=== PATIENT | male | born 1950 | race Caucasian/White ===

== ENCOUNTER 2019-03-25 23:27 | Inpatient (IN) | payer BC, MEDICARE ==
[2019-03-25] MEDS ORDERED: NS 0.9% 1000 ML** 1,000 ML IV ONE ×2 (23:44→23:45)
[2019-03-25] MEDS ORDERED: Ketorolac INJ* 30 MG/ML 1 ML VIAL IV PUSH ONE (23:45)
[2019-03-26 00:18] LABS: ABS Lymphocytes 0.6 10^3/ul (1.0-4.8); ABS Monocytes 1.1 10^3/ul (0-0.8); ABS Neutrophils 12.8 10^3/ul (1.5-7.7); Eosinophil % 0.3 %; Hematocrit 43 % (42-52); Hemoglobin 14.5 g/dL (14.0-18.0); Lymphocyte % 4.3 %; Mean Corpuscular HGB Conc 34 g/dL (31-36); Mean Corpuscular Hemoglobin 31 pg (27-31); Mean Corpuscular Volume 91 fL (80-94); Mean Platelet Volume 7.9 fL (7.4-10.4); Nucleated Red Blood Cells % 0.1; Platelet Count 209 10^3/uL (150-450); Red Blood Count 4.67 10^6 /uL (4.18-5.48); Red Cell Distribution Width 13 % (10.5-15); White Blood Count 14.6 10^3/uL (3.5-10.8)
--- NOTE | 2019-03-26 00:26 | ED ---
GI/ HPI - HPI Summary HPI Summary: Pt is a 68 y/o male who presents to the ED c/o flank pain. 2 days ago he started to have chills, body aches, dark urine, urinary frequency, and weak stream.16:00 last night he began to have right flank pain and nausea. Pain is rated an 8/10 in severity and is made worse with coughing. He states that his right kidney is half the size of his left kidney, and every few years he gets right flank pain that is resolved with antibiotics. Pt denies any fever, dysuria , hematuria, abdominal pain, vomiting, or diarrhea. - History of Current Complaint Chief Complaint: EDFlankPain Time Seen by Provider: 03/26/19 00:10 Stated Complaint: KIDNEY HALF THE SIZE AND IN PAIN PER PT Hx Obtained From: Patient Onset/Duration: Started Days Ago - 2, Still Present Timing: Constant Current Severity: Severe Pain Intensity: 8 Location of Pain: Flank - R Associated Signs and Symptoms: Positive: Nausea, Flank Pain, Chills. Negative: Vomiting, Diarrhea, Fever, Hematuria, Dysuria, Abdominal Pain - Allergy/Home Medications Allergies/Adverse Reactions: Allergies Allergy/AdvReac Type Severity Reaction Status Date / Time No Known Allergies Allergy Verified 03/25/19 23:33 Home Medications: Home Medications NK [No Home Medications Reported] 03/26/19 [History Confirmed 03/26/19] PMH/Surg Hx/FS Hx/Imm Hx GI History: Reports: Other GI Disorders - appendicitis History: Reports: Other Problems/Disorders - R kidney smaller Psychiatric History: Reports: Hx Attention Deficit Hyperactivity Disorder Infectious Disease History: No Infectious Disease History: Denies: Traveled Outside the [place] in Last 30 Days - Family History Known Family History: Positive: Other - alcoholism - Social History Alcohol Use: Occasionally Hx Substance Use: No Substance Use Type: Reports: None Hx Tobacco Use: No Smoking Status (MU): Never Smoked Tobacco Review of Systems Positive: Chills, Other - body aches. Negative: Fever Positive: Nausea. Negative: Abdominal Pain, Vomiting, Diarrhea Positive: frequency, flank pain - right, other - dark-colored urine, weak stream. Negative: dysuria, hematuria All Other Systems Reviewed And Are Negative: Yes Physical Exam - Summary Physical Exam Summary: Appearance: well appearing, no pain distress Skin: hot, dry, reflects adequate perfusion Head/face: normal Eyes: EOMI, SHERITA ENT: mucous membranes moist Neck: supple, non-tender Respiratory: CTA, breath sounds present Cardiovascular: RRR, pulses symmetrical Abdomen: mild right tenderness, no suprapubic tenderness, mild right CVA tenderness, soft Bowel Sounds: present Musculoskeletal: normal, strength/ROM intact Neuro: normal, sensory motor intact, A&Ox3 Triage Information Reviewed: Yes Vital Signs On Initial Exam: Initial Vitals Temp Pulse Resp BP Pulse Ox 99.5 F 113 20 139/84 95 03/25/19 23:30 03/25/19 23:30 03/25/19 23:30 03/25/19 23:30 03/25/19 23:30 Vital Signs Reviewed: Yes Diagnostics - Vital Signs Vital Signs Temp Pulse Resp BP Pulse Ox 03/26/19 00:17 101.1 F 03/25/19 23:30 99.5 F 113 20 139/84 95 - Laboratory Lab Results: Lab Results 03/26/19 Range/Units 00:11 WBC 14.6 H (3.5-10.8) 10^3/uL RBC 4.67 (4.18-5.48) 10^6 /uL Hgb 14.5 (14.0-18.0) g/dL Hct 43 (42-52) % MCV 91 (80-94) fL MCH 31 (27-31) pg MCHC 34 (31-36) g/dL RDW 13 (10.5-15) % Plt Count 209 (150-450) 10^3/uL MPV 7.9 (7.4-10.4) fL Neut % (Auto) 87.4 % Lymph % (Auto) 4.3 % [place] % (Auto) 7.7 % Eos % (Auto) 0.3 % Baso % (Auto) 0.3 % Absolute Neuts (auto) 12.8 H (1.5-7.7) 10^3/ul Absolute Lymphs (auto) 0.6 L (1.0-4.8) 10^3/ul Absolute Monos (auto) 1.1 H (0-0.8) 10^3/ul Absolute Eos (auto) 0.0 (0-0.6) 10^3/ul Absolute Basos (auto) 0.0 (0-0.2) 10^3/ul Absolute Nucleated RBC 0.0 10^3/ul Nucleated RBC % 0.1 Result Diagrams: 03/26/19 00:11 03/26/19 00:11 Lab Statement: Any lab studies that have been ordered have been reviewed, and results considered in the medical decision making process. - CT CT A/P CT Interpretation Completed By: Radiologist Summary of CT Findings: 1. Findings suggest cystitis. 2. Chronic severe right UPJ obstruction. 3. Colon containing left inguinal hernia. No obstruction or strangulation. 4. Sliding hiatal hernia. ED physician reviewed radiology report. - EKG 2:54 Cardiac Rate: NL - 89 bpm EKG Rhythm: Sinus Rhythm ST Segment: Non-Specific Summary of EKG Findings: Nl axis, nl intervals GIGU Course/Dx - Course Course Of Treatment: Patient with a history of atrophic kidney on the right side due to chronic obstruction as evidence by CT scan from 2005. Today's [address] shows similar picture but also findings consistent with acute cystitis. His urine is grossly infected and he has elevated WBC, CRP and a fever. Given his pain in the area and back pain and pyelonephritis is a concern. Discussed the case with the urologist who agrees with the IV fluids, Rocephin and gentamicin that was given. Patient will be admitted through the hospitalist service and have consultation with the urologist who will place a stent should the patient not recover quickly. - Diagnoses Differential Diagnoses - Male: Other - UTI, pyelonephritis, appendicitis, perforated bowel, gallbladder disease Provider Diagnoses: Sepsis, Pyelonephritis, Hyperglycemia - Physician Notifications Discussed Care Of Patient With: Lee Cooper Time Discussed With Above Provider: 01:00 Instructed by Provider To: Other - Discussed pt, and he would like a consult with urology. At 2:[address] Reece, who would like the pt admitted and he will see him in a consult. At 2:15 Dr. Cooper accepts pt for admission. Discharge - Sign-Out/Discharge Documenting (check all that apply): Patient Departure - Admit Patient Received Moderate/Deep Sedation with Procedure: No - Discharge Plan Condition: Fair Disposition: ADMITTED TO [facility] Referrals: Kaiser Johns MD [Primary Care Provider] - - Billing Disposition and Condition Condition: FAIR Disposition: Admitted to [facility] - Attestation Statements Document Initiated by Scribe: Yes Documenting Scribe: Jolly Palomo Provider For Whom Scribe is Documenting (Include Credential): James Aviles MD Scribe Attestation: I, Jolly Palomo, scribed for James Aviles MD on 03/26/19 at 0347. Scribe Documentation Reviewed: Yes Provider Attestation: The documentation as recorded by the Jolly torres accurately reflects the service I personally performed and the decisions made by me, James Aviles MD Status of Scribe Document: Viewed
[2019-03-26 00:32] LABS: INR 1.16 (0.82-1.09)
[2019-03-26 00:36] LABS: ALT 15 U/L (7-52); AST 17 U/L (13-39); Albumin 4.3 g/dL (3.2-5.2); Albumin/Globulin Ratio 1.4 (1-3); Alkaline Phosphatase 65 U/L (34-104); Anion Gap 10 mmol/L (2-11); BUN/Creatinine Ratio 11.6 (8-20); Blood Urea Nitrogen 16 mg/dL (6-24); C Reactive Protein 204.28 mg/L (<8.01); CO2 Carbon Dioxide 24 mmol/L (22-32); Calcium 9.6 mg/dL (8.6-10.3); Chloride 98 mmol/L (101-111); EGFR African American 61.8 (>60); EGFR Non-African American 51.1 (>60); Globulin 3.1 g/dL (2-4); Glucose 231 mg/dL (70-100); Sodium 132 mmol/L (135-145); Total Protein 7.4 g/dL (6.4-8.9)
[2019-03-26] MEDS ORDERED: cefTRIAXone(*) 2 GM in NS 0.9% 100 ML* 100 ML IVPB ONE (00:36)
[2019-03-26] MEDS ORDERED: Gentamicin ADULT (*) 350 MG in NS 0.9% 100 ML* 100 ML IVPB ONE (00:55)
[2019-03-26 01:23] LABS: Urine Appearance Turbid; Urine Bacteria 1+ (Absent); Urine Bilirubin Negative (Negative); Urine Blood 2+ (Negative); Urine Color Amber; Urine Glucose 3+(>=500 mg/dL) (Negative); Urine Ketones 1+ (Negative); Urine Nitrite Positive (Negative); Urine Protein 2+(100 mg/dL) (Negative); Urine Red Blood Cell 3+(>10/hpf) (Absent); Urine Squamous Epithelial Cell Present (Absent); Urine Urobilinogen Negative (Negative); Urine White Blood Cell 3+(>20/hpf) (Absent)
[2019-03-26] MEDS ORDERED: NS 0.9% 1000 ML** 1,000 ML IV ONE (04:05)
[2019-03-26] MEDS ORDERED: Ondansetron INJ* 2 MG/ML VIAL IV PRN (04:10)
[2019-03-26] MEDS ORDERED: Heparin VIAL(*) 5000 UNITS/ML VIAL (FIVE THOUSAND) SUBCUT SCH (06:00)
--- NOTE | 2019-03-26 06:41 | HP ---
CC: Dr. Johns * HISTORY AND PHYSICAL: DATE OF ADMISSION: 03/26/19 PRIMARY CARE PROVIDER: Dr. Johns. HEALTHCARE PROXY: None. Does not want to identify a healthcare proxy at this time. CODE STATUS: Full. SOURCE OF INFORMATION: History obtained from interview with the patient. RELIABILITY: Poor. CHIEF COMPLAINT: Flank pain. HISTORY OF PRESENT ILLNESS: This is a 68-year-old man with past medical history of atrophic right kidney based on CAT scan in 2005 who over the past several days, 2 to 3 days, has had subjective fevers and chills. The afternoon of presentation he woke up, made an appointment with his PCP because he had not been feeling well; however, later in the day noticed right flank pain rated as 8 /10, hard to describe in nature, but it was nonradiating. He notes he has had pain like this in the past with "kidney infections" that occur every 4, 5, or 6 years. He notes that those kidney infections have never required a hospital stay, but cannot say how long antibiotic courses have lasted or what he has taken. He notes mild nausea, decreased p.o., weaker urine stream, but denies dysuria, urinary frequency, or hesitancy. Because of the increased pain in his right flank, he presented to the emergency room. The patient's CT abdomen and pelvis was notable for cystitis as well as chronic severe right UPJ obstruction. The case was discussed between Dr. Aviles and Dr. Reece, who recommended admission to the hospital and consultation by his service in the morning with potential stenting if deemed necessary at that time after his consultation. PAST MEDICAL HISTORY: Includes: 1. Appendectomy in 2005. 2. Atrophic right kidney secondary to chronic obstruction, first noted in 2005. 3. ADHD. 4. Recurrent UTIs. 5. Hyperlipidemia. MEDICATIONS: 1. Dextroamphetamine 5 mg 2 to 4 times per day. 2. [id number] vitamin D3. 3. Calcium. 4. Zinc. 5. Magnesium. 6. B complex vitamins. ALLERGIES: No known drug allergies. FAMILY HISTORY: Father with MS and alcoholism. Mother with CVA in her 70s. SOCIAL HISTORY: No tobacco. Alcohol is approximately 6 beers per week. 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 Now works in the [employer] part- time. REVIEW OF SYSTEMS: As per HPI; otherwise, all other systems negative. PHYSICAL EXAMINATION GENERAL: Lying 45 degrees in bed, interactive and pleasant, in no apparent distress. VITAL SIGNS: When seen by this author, 130/75, heart rate 90, respiratory rate is 16, 95% on room air, T-max 101.5 in the emergency room. HEENT: Oropharynx is clear. Moist mucous membranes. Sclerae are anicteric. LUNGS: Have rales in his right base extending up approximately one-quarter of the way to the apex. He has right costovertebral angle tenderness. HEART: Has regular rate and rhythm. No murmurs, rubs, or gallops. ABDOMEN: Soft, nontender, nondistended. EXTREMITIES: Warm and well perfused. No clubbing, cyanosis, or edema. Less than 2-second capillary refill. NEUROLOGIC: He is A and O x3. His cranial nerves II through XII are intact. He has no apparent anxiety, agitation, or depression. DIAGNOSTIC STUDIES/LAB DATA: Labs reviewed, notable for white blood cell count of 14.6, 87.4% neutrophils. BUN 16, creatinine 1.38, glucose 231, lactic acid 1.0, total bilirubin 1.3, CRP is 204, lipase less than 10. His urine is notable for protein, ketones, blood, nitrites, leukocyte esterase, white blood cells, red blood cells, squamous epithelial cells, bacteria, and glucose. Data reviewed. CT abdomen and pelvis, impression: Findings suggestive of cystitis. Chronic severe right UPJ obstruction, colon-containing left inguinal hernia; no obstruction or strangulation, and a sliding hiatal hernia. ASSESSMENT AND PLAN: This is a 68-year-old man with past medical history of chronic atrophic right kidney secondary to chronic obstruction presenting with right costovertebral angle tenderness with findings suggestive of cystitis. 1. Sepsis, unclear if severe, would be based on chronicity of kidney injury. We will presume severe sepsis on presentation, bolus another liter of normal saline at this time. Is ordered to receive ceftriaxone and gentamicin. Continue ceftriaxone q.24 hours. Repeat BMP in the morning to evaluate for kidney function. If kidney function is stable, might suggest chronic kidney disease with no end-organ dysfunction, which would not indicate severe sepsis. Dr. Reece has been consulted by the emergency room. I have placed a formal consultation in emergency into [facility]. Unclear whether this infection represents pyelonephritis with a chronic obstructive kidney versus cystitis. In either case, I think he warrants urology consultation. The patient is an inconsistent historian, requesting records from Dr. Johns. 2. Elevated glucose. I have requested to add on hemoglobin A1c to the emergency room labs. If elevated, add fingerstick glucose a.c. and h.s. I have not added any insulin sliding scale at this time pending hemoglobin A1c. 3. Rales in the right base up one-quarter to the apex. Check PA and lateral chest x-ray. 4. Kidney function, unclear acute kidney injury versus chronic kidney disease. Chronic kidney disease would be understandable given chronicity of right kidney obstruction. However, in the setting of acute infection, acute kidney injury is also possible. Repeat BMP in the morning status post multi liter bolus. 5. DVT prophylaxis. Heparin subcu. [id number]/[facility] #: [id number] MTDD
[2019-03-26] MEDS ORDERED: Amphetamine MIXED SALT TAB* 10 MG TAB PO PRN (07:00)
[2019-03-26 07:17] LABS: BUN/Creatinine Ratio 12.7 (8-20); Calcium 8.1 mg/dL (8.6-10.3); EGFR African American 68.7 (>60); EGFR Non-African American 56.7 (>60); Potassium 3.8 mmol/L (3.5-5.0)
[2019-03-26] MEDS ORDERED: Dextrose 50% Syringe 50 ML* 25 GM/50 ML SYRINGE IV PUSH PRN (09:12)
--- NOTE | 2019-03-26 09:14 | PN ---
Subjective Date of Service: 03/26/19 Interval History: Admitted this morning - urology consult pending. Received CTX 2g (at 1am) and gentamicin 350mg (at 2am), so these are still at therapeutic doses until tonight. Pt still with fevers, which is expected after only a few hours of antibiotics. He is s/p sepsis fluids, euvolemic on exam, and tolerating PO. Cr slightly improved after IVF. A1c resulted 9.3 - will start on ISS. Pt denies h/o diabetes. Denies increased thirst, polyuria. Still with R CVA pain. Denies dysuria or superpubic tenderness. Reports "maybe" chills when febrile. Otherwise feels well. Objective Active Medications: Acetaminophen (Tylenol Tab*) 650 mg PO Q4H PRN PRN Reason: FEVER/PAIN Last Admin: 03/26/19 16:46 Dose: 650 mg Amphetamine/Dextroamphetamine (Adderall Tab*) 10 mg PO 0700,1400 PRN PRN Reason: MD DISCRETION Dextrose (D50w Syringe 50 Ml*) 12.5 gm IV PUSH .FOR FS < 60 - SS PRN PRN Reason: FS < 60 Enoxaparin Sodium (Lovenox(*)) 30 mg SUBCUT BEDTIME SACHA Ceftriaxone Sodium 2 gm/ (Sodium Chloride) 100 mls @ 200 mls/hr IVPB Q24H SACHA Insulin Human Lispro (Humalog*) 0 units SUBCUT AC SACHA; Protocol Last Admin: 03/26/19 17:14 Dose: 1 units Ondansetron HCl (Zofran Inj*) 4 mg IV Q4H PRN PRN Reason: NAUSEA/VOMITING Oxygen Devices in Use Now: None Appearance: well appearing, NAD, nontoxic, alert and interactive Eyes: No Scleral Icterus Ears/Nose/Mouth/Throat: Clear Oropharnyx, Mucous Membranes Moist Neck: NL Appearance and Movements; NL JVP Respiratory: Clear to Auscultation Cardiovascular: NL Sounds; No Murmurs; No JVD, RRR Abdominal: NL Sounds; No Tenderness; No Distention, No Hepatosplenomegaly, - - R CVA punch tenderness Lymphatic: No Cervical Adenopathy Extremities: No Edema Skin: No Rash or Ulcers Neurological: Alert and Oriented x 3 Result Diagrams: 03/26/19 00:11 03/26/19 06:39 Additional Lab and Data: Lab Results 03/26/19 Range/Units 00:11 WBC 14.6 H (3.5-10.8) 10^3/uL RBC 4.67 (4.18-5.48) 10^6 /uL Hgb 14.5 (14.0-18.0) g/dL Hct 43 (42-52) % MCV 91 (80-94) fL MCH 31 (27-31) pg MCHC 34 (31-36) g/dL RDW 13 (10.5-15) % Plt Count 209 (150-450) 10^3/uL MPV 7.9 (7.4-10.4) fL Neut % (Auto) 87.4 % Lymph % (Auto) 4.3 % [place] % (Auto) 7.7 % Eos % (Auto) 0.3 % Baso % (Auto) 0.3 % Absolute Neuts (auto) 12.8 H (1.5-7.7) 10^3/ul Absolute Lymphs (auto) 0.6 L (1.0-4.8) 10^3/ul Absolute Monos (auto) 1.1 H (0-0.8) 10^3/ul Absolute Eos (auto) 0.0 (0-0.6) 10^3/ul Absolute Basos (auto) 0.0 (0-0.2) 10^3/ul Absolute Nucleated RBC 0.0 10^3/ul Nucleated RBC % 0.1 Assess/Plan/Problems-Billing Assessment: 68M with 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 - Patient Problems (1) Urinary tract infection Current Visit: Yes Comment: Pyelonephritis of R atrophic kidney. Sepsis on admission, now s/p sepsis fluids and without evidence for severe sepsis. - on CTX 2g (03/26 - ), also on gentamycin - given one dose this AM, will be due for another tomorrow (overnight) - can give second dose pending culture data - f/u UCx - urology following in case of stent placement (2) Diabetes mellitus Comment: New diagnosis. Will control blood glucose on ISS while admitted and discharge on new oral medications. Discussed diet, exercise. (3) DVT prophylaxis Current Visit: Yes Status: Acute Code(s): Z29.9 - ENCOUNTER FOR PROPHYLACTIC MEASURES, UNSPECIFIED SNOMED Code(s): 845920854 Comment: on vernonnox
[2019-03-26] MEDS: Acetaminophen TAB* 325 MG PO PRN ×2 (11:11→16:46)
[2019-03-26] MEDS: Insulin LISPRO* 1 UNITS UNIT SUBCUT SCH ×2 (12:00→17:14)
--- NOTE | 2019-03-26 19:01 | CONS ---
CC: Dr. Johns; Ralph Reece MD * UROLOGY CONSULTATION: DATE OF CONSULT: 03/26/19 REQUESTING PHYSICIAN: Dr. Aviles. DIAGNOSES: 1. Right hydronephrosis secondary to chronic right ureteropelvic junction obstruction. 2. Probable pyelonephritis. HISTORY OF PRESENT ILLNESS: Rajinder Rodriguez is a 68-year-old gentleman who was initially diagnosed in 2007 as having chronic right ureteropelvic junction obstruction during workup for appendicitis. Since then over the course of the last 10 years, he states he has had 2 or 3 episodes of what appears to have been pyelonephritis, which has been successfully treated as an outpatient with antibiotics. Over the course of the last 2 to 3 days, he started having some low-grade fever and chills and had actually made an appointment to see Dr. Johns, but presented to the ER because of worsening right flank pain. In the emergency room, his temperature was 101.5. PAST MEDICAL HISTORY: Significant for: 1. Atrophic right kidney secondary to chronic obstruction, initially diagnosed 11 years ago. 2. ADHD. 3. Hyperlipidemia. PAST SURGICAL HISTORY: Significant for appendectomy in 2007. MEDICATIONS ON ADMISSION: 1. Dextroamphetamine 5 mg 2 to 4 times a day. 2. Multiple vitamins and supplements. ALLERGIES: No known drug allergies. SOCIAL HISTORY: He is a nonsmoker. Drinks 5 to 6 beers per week. FAMILY HISTORY: Negative for stones. REVIEW OF SYSTEMS: He is otherwise in excellent health. He denies any chest pain or shortness of breath. There is no history of diabetes mellitus or any other major systemic illness. PHYSICAL EXAM: Reveals a pleasant middle-aged gentleman who is currently comfortable. He states that his flank pain has significantly improved over the last 4 to 5 hours. Blood pressure is 139/67, heart rate is 83 per minute, regular, temperature 98.4, oxygen saturation 98% on room air, respirations 18 per minute. Cardiovascular Exam: Regular rate and rhythm. S1 and S2. Lungs are clear bilaterally. Abdomen is soft with mild right flank tenderness. DIAGNOSTIC STUDIES/LAB DATA: I reviewed the labs, which revealed a white count of 14.6, hemoglobin and hematocrit of 14.5 and 43 with a platelet count of 209. Review of his metabolic profile reveals a sodium of 132, BUN and creatinine are 16 and 1.38 on admission and checked again was 16 and 1.26. C-reactive protein is 204.28. Urinalysis revealed 2+ protein, greater than 10 red blood cells per high- power field, greater than 20 white blood cells per high-power field, and 1 + bacteria. 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 IMPRESSION: I had a detailed discussion with Mr. Rodriguez regarding the management options for chronic right ureteropelvic junction with an atrophic right kidney. Ideally, I would like to obtain a diuretic nuclear scan; however, given the degree of renal atrophy, I do not know how accurate this will be in assessing the excretion of radioisotopes. Since clinically he appears significantly better both in terms of temperature and in terms of pain, there is no need for any urgent stent insertion or nephrostomy tube insertion but options and management depending on his clinical course would include right stent insertion or possible right nephrostomy tube insertion. The more definitive solutions would consist of right pyeloplasty or possibly if the kidneys found to be truly of very poor functional quality, then possibly a simple right nephrectomy. I will check up on him again over the course of the next 8 to 12 hours; as long as he is clinically improving, he can then be followed up as an outpatient. [id number]/[facility] #: [id number] MARTINE
[2019-03-26] MEDS: Enoxaparin(*) 30 MG/0.3 ML SYR SUBCUT SCH (21:35)
[2019-03-26] MEDS ORDERED: cefTRIAXone(*) 1 GM in NS 0.9% 50 ML* 50 ML IVPB SCH (23:00)
[2019-03-27] MEDS: Acetaminophen TAB* 325 MG PO PRN (00:10)
[2019-03-27] MEDS: cefTRIAXone(*) 2 GM in NS 0.9% 100 ML* 100 ML IVPB SCH (00:12)
[2019-03-27] MEDS ORDERED: Gentamicin ADULT (*) 350 MG in NS 0.9% 100 ML* 100 ML IVPB ONE (02:30)
[2019-03-27 06:29] LABS: Hematocrit 35 % (42-52); Hemoglobin 12.2 g/dL (14.0-18.0); Mean Corpuscular HGB Conc 35 g/dL (31-36); Mean Corpuscular Hemoglobin 32 pg (27-31); Mean Corpuscular Volume 92 fL (80-94); Mean Platelet Volume 8.2 fL (7.4-10.4); Platelet Count 152 10^3/uL (150-450); Red Blood Count 3.83 10^6 /uL (4.18-5.48); Red Cell Distribution Width 13 % (10.5-15); White Blood Count 8.9 10^3/uL (3.5-10.8)
[2019-03-27 06:47] LABS: BUN/Creatinine Ratio 12.6 (8-20); Calcium 8.7 mg/dL (8.6-10.3); EGFR Non-African American 56.2 (>60); Magnesium 1.8 mg/dL (1.9-2.7); Potassium 3.8 mmol/L (3.5-5.0)
[2019-03-27] MEDS: Insulin LISPRO* 1 UNITS UNIT SUBCUT SCH ×3 (07:52→18:00)
[2019-03-27] MEDS ORDERED: Magnesium Sulfate 1 GM IV* 1 GM/100 ML BAG IV ONE (09:25)
--- NOTE | 2019-03-27 09:26 | PN ---
Subjective Date of Service: 03/27/19 Interval History: Tmax overnight 101.9 F - still within 24 hours of starting broad spectrum antibiotics the previous morning. Vitals otherwise wnl. Leukocytosis resolved. No growth after 1 day from blood cultures, pending UCx. Patient reports feeling "well" and denies complaints. Only has R flank pain during exam. No longer with chills. Objective Active Medications: Acetaminophen (Tylenol Tab*) 650 mg PO Q4H PRN PRN Reason: FEVER/PAIN Last Admin: 03/27/19 00:10 Dose: 650 mg Amphetamine/Dextroamphetamine (Adderall Tab*) 10 mg PO 0700,1400 PRN PRN Reason: MD DISCRETION Dextrose (D50w Syringe 50 Ml*) 12.5 gm IV PUSH .FOR FS < 60 - SS PRN PRN Reason: FS < 60 Enoxaparin Sodium (Lovenox(*)) 30 mg SUBCUT BEDTIME SACHA Last Admin: 03/26/19 21:35 Dose: 30 mg Ceftriaxone Sodium 2 gm/ (Sodium Chloride) 100 mls @ 200 mls/hr IVPB Q24H SACHA Last Admin: 03/27/19 00:12 Dose: 200 mls/hr Insulin Human Lispro (Humalog*) 0 units SUBCUT AC [facility]; Protocol Last Admin: 03/27/19 07:52 Dose: Not Given Ondansetron HCl (Zofran Inj*) 4 mg IV Q4H PRN PRN Reason: NAUSEA/VOMITING Vital Signs - 8 hr 03/27/19 03/27/19 03/27/19 03:13 07:51 08:00 Temperature 100.0 F 98.0 F Pulse Rate 73 74 Respiratory 20 16 16 Rate Blood Pressure 108/58 120/57 (mmHg) O2 Sat by Pulse 94 92 Oximetry Oxygen Devices in Use Now: None Appearance: well appearing NAD AOx3 Eyes: No Scleral Icterus Ears/Nose/Mouth/Throat: Clear Oropharnyx, Mucous Membranes Moist Neck: NL Appearance and Movements; NL JVP Respiratory: Symmetrical Chest Expansion and Respiratory Effort, Clear to Auscultation Cardiovascular: RRR Abdominal: NL Sounds; No Tenderness; No Distention, - - R CVA punch tenderness Extremities: No Edema Skin: No Rash or Ulcers Neurological: Alert and Oriented x 3, NL Gait Result Diagrams: 03/27/19 06:03 03/27/19 06:03 Additional Lab and Data: Lab Results 03/26/19 Range/Units 00:11 WBC 14.6 H (3.5-10.8) 10^3/uL RBC 4.67 (4.18-5.48) 10^6 /uL Hgb 14.5 (14.0-18.0) g/dL Hct 43 (42-52) % MCV 91 (80-94) fL MCH 31 (27-31) pg MCHC 34 (31-36) g/dL RDW 13 (10.5-15) % Plt Count 209 (150-450) 10^3/uL MPV 7.9 (7.4-10.4) fL Neut % (Auto) 87.4 % Lymph % (Auto) 4.3 % [place] % (Auto) 7.7 % Eos % (Auto) 0.3 % Baso % (Auto) 0.3 % Absolute Neuts (auto) 12.8 H (1.5-7.7) 10^3/ul Absolute Lymphs (auto) 0.6 L (1.0-4.8) 10^3/ul Absolute Monos (auto) 1.1 H (0-0.8) 10^3/ul Absolute Eos (auto) 0.0 (0-0.6) 10^3/ul Absolute Basos (auto) 0.0 (0-0.2) 10^3/ul Absolute Nucleated RBC 0.0 10^3/ul Nucleated RBC % 0.1 Microbiology and Other Data: Microbiology 03/26/19 01:09 Aerobic Blood Culture - Final Blood Venous Not Reportable Anaerobic Blood Culture - Final Not Reportable Blood Culture - Preliminary No Growth Day 1 03/26/19 01:09 Aerobic Blood Culture - Preliminary Blood Venous No Growth Day 1 Anaerobic Blood Culture - Preliminary No Growth Day 1 Assess/Plan/Problems-Billing Assessment: 68M with 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 - Patient Problems (1) Urinary tract infection Current Visit: Yes Comment: Pyelonephritis of R atrophic kidney. Sepsis on admission. - on CTX 2g (03/26 - ), also on gentamycin (03/26-03/27) - f/u UCx - urology following in case of stent placement (2) Diabetes mellitus Comment: New diagnosis. Will control blood glucose on ISS while admitted and discharge on new oral medications. Discussed diet, exercise. (3) DVT prophylaxis Current Visit: Yes Status: Acute Code(s): Z29.9 - ENCOUNTER FOR PROPHYLACTIC MEASURES, UNSPECIFIED SNOMED Code(s): 368287904 Comment: on lovenox
[2019-03-27] MEDS: Enoxaparin(*) 30 MG/0.3 ML SYR SUBCUT SCH (21:04)
[2019-03-28] MEDS: cefTRIAXone(*) 2 GM in NS 0.9% 100 ML* 100 ML IVPB SCH (01:35)
[2019-03-28 06:34] LABS: ABS Eosinophils 0.1 10^3/ul (0-0.6); ABS Lymphocytes 1.1 10^3/ul (1.0-4.8); ABS Monocytes 0.7 10^3/ul (0-0.8); ABS Neutrophils 4.6 10^3/ul (1.5-7.7); Eosinophil % 2.2 %; Hematocrit 35 % (42-52); Hemoglobin 12.1 g/dL (14.0-18.0); Lymphocyte % 16.4 %; Mean Corpuscular HGB Conc 35 g/dL (31-36); Mean Corpuscular Hemoglobin 32 pg (27-31); Mean Corpuscular Volume 92 fL (80-94); Mean Platelet Volume 8.4 fL (7.4-10.4); Nucleated Red Blood Cells % 0.1; Platelet Count 196 10^3/uL (150-450); Red Blood Count 3.82 10^6 /uL (4.18-5.48); Red Cell Distribution Width 13 % (10.5-15); White Blood Count 6.6 10^3/uL (3.5-10.8)
[2019-03-28 06:49] LABS: BUN/Creatinine Ratio 11.6 (8-20); Calcium 8.9 mg/dL (8.6-10.3); EGFR African American 71.9 (>60); EGFR Non-African American 59.5 (>60); Magnesium 1.9 mg/dL (1.9-2.7); Potassium 3.7 mmol/L (3.5-5.0)
[2019-03-28] MEDS: Insulin LISPRO* 1 UNITS UNIT SUBCUT SCH (07:44)
[2019-03-28 08:31] VITALS: BP 137/73
--- NOTE | 2019-03-28 08:42 | PN ---
Subjective Date of Service: 03/28/19 Interval History: UCx resulted E. coli resistant to gentamicin and Bactrim. No fevers for > 48 hours. Pt denies complaints. Curious if he is getting a sent today. Objective Active Medications: Acetaminophen (Tylenol Tab*) 650 mg PO Q4H PRN PRN Reason: FEVER/PAIN Last Admin: 03/27/19 00:10 Dose: 650 mg Amphetamine/Dextroamphetamine (Adderall Tab*) 10 mg PO 0700,1400 PRN PRN Reason: MD DISCRETION Dextrose (D50w Syringe 50 Ml*) 12.5 gm IV PUSH .FOR FS < 60 - SS PRN PRN Reason: FS < 60 Enoxaparin Sodium (Lovenox(*)) 30 mg SUBCUT BEDTIME [facility] Last Admin: 03/27/19 21:04 Dose: 30 mg Ceftriaxone Sodium 2 gm/ (Sodium Chloride) 100 mls @ 200 mls/hr IVPB Q24H [facility] Last Admin: 03/28/19 01:35 Dose: 200 mls/hr Insulin Human Lispro (Humalog*) 0 units SUBCUT AC [facility]; Protocol Last Admin: 03/28/19 07:44 Dose: Not Given Ondansetron HCl (Zofran Inj*) 4 mg IV Q4H PRN PRN Reason: NAUSEA/VOMITING Vital Signs - 8 hr 03/28/19 03/28/19 03:15 07:21 Temperature 99.0 F 97.9 F Pulse Rate 69 77 Respiratory 18 14 Rate Blood Pressure 136/73 137/73 (mmHg) O2 Sat by Pulse 97 95 Oximetry Oxygen Devices in Use Now: None Appearance: well appearing Eyes: No Scleral Icterus Ears/Nose/Mouth/Throat: Clear Oropharnyx, Mucous Membranes Moist Neck: NL Appearance and Movements; NL JVP Respiratory: Symmetrical Chest Expansion and Respiratory Effort, Clear to Auscultation Cardiovascular: RRR Abdominal: NL Sounds; No Tenderness; No Distention Lymphatic: No Cervical Adenopathy Extremities: No Edema Skin: No Rash or Ulcers Neurological: Alert and Oriented x 3, NL Gait Result Diagrams: 03/28/19 06:11 03/28/19 06:11 Additional Lab and Data: Lab Results 03/26/19 Range/Units 00:11 WBC 14.6 H (3.5-10.8) 10^3/uL RBC 4.67 (4.18-5.48) 10^6 /uL Hgb 14.5 (14.0-18.0) g/dL Hct 43 (42-52) % MCV 91 (80-94) fL MCH 31 (27-31) pg MCHC 34 (31-36) g/dL RDW 13 (10.5-15) % Plt Count 209 (150-450) 10^3/uL MPV 7.9 (7.4-10.4) fL Neut % (Auto) 87.4 % Lymph % (Auto) 4.3 % [place] % (Auto) 7.7 % Eos % (Auto) 0.3 % Baso % (Auto) 0.3 % Absolute Neuts (auto) 12.8 H (1.5-7.7) 10^3/ul Absolute Lymphs (auto) 0.6 L (1.0-4.8) 10^3/ul Absolute Monos (auto) 1.1 H (0-0.8) 10^3/ul Absolute Eos (auto) 0.0 (0-0.6) 10^3/ul Absolute Basos (auto) 0.0 (0-0.2) 10^3/ul Absolute Nucleated RBC 0.0 10^3/ul Nucleated RBC % 0.1 Microbiology and Other Data: Microbiology 03/26/19 01:09 Aerobic Blood Culture - Final Blood Venous Not Reportable Anaerobic Blood Culture - Final Not Reportable Blood Culture - Preliminary No Growth Day 1 03/26/19 01:09 Aerobic Blood Culture - Preliminary Blood Venous No Growth Day 1 Anaerobic Blood Culture - Preliminary No Growth Day 1 Assess/Plan/Problems-Billing Assessment: 68M with 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 - Patient Problems (1) Urinary tract infection Comment: Pyelonephritis of R atrophic kidney. Sepsis on admission. Growing E. coli sensitive to CTX, resistant to gentamicin. - on CTX 2g (03/26 - ) switched to cefdinir - urology requesting outpatient f/u (2) Diabetes mellitus Comment: New diagnosis. Will control blood glucose on ISS while admitted and discharge on new oral medications. Discussed diet, exercise. (3) DVT prophylaxis Status: Acute Code(s): Z29.9 - ENCOUNTER FOR PROPHYLACTIC MEASURES, UNSPECIFIED SNOMED Code(s): 116808166 Comment: on lovenox
--- NOTE | 2019-03-28 15:44 | DS ---
CC: Kaiser Johns MD; Dr. Ralph Reece* DISCHARGE SUMMARY: DATE OF ADMISSION: 03/26/19 DATE OF DISCHARGE: 03/28/19 PRIMARY CARE PHYSICIAN: Kaiser Johns MD PRIMARY DIAGNOSES: 1. Pyelonephritis. 2. Diabetes mellitus type 2. SECONDARY DIAGNOSES: 1. Atrophic right kidney secondary to chronic obstruction. 2. Attention deficit hyperactivity disorder. CONSULTS: Urology, Dr. Ralph Reece. DISCHARGE MEDICATION LIST: 1. Cefdinir 300 mg twice a day for 7 more days. 2. Metformin titrate up to 2000 mg daily. 3. Dextroamphetamine 5 mg 2 to 4 times per day. HISTORY OF PRESENT ILLNESS: A 68-year-old gentleman with chronic right ureteropelvic junction obstruction who has had frequent episodes of pyelonephritis over the last 10 years, is presenting with 2 to 3 days of subjective fevers and chills. On the afternoon of presentation, he woke up and made an appointment with his PCP because he had not been feeling well, but then later in the day noticed right flank pain that progressed to 8/10, was hard to describe in nature, but was not radiating. He has had pain like this in the past when he has had his kidney infections before. He notes that his kidney infections have never required hospital stay, but cannot say how long his antibiotic courses had lasted or what he had previously taken. These symptoms are associated with mild nausea, decreased oral intake and a weaker urine stream , but he had no dysuria, urinary frequency, hesitancy, or suprapubic tenderness. Because of the increased pain in the context of fever and chills, he presented to the emergency room. HOSPITAL COURSE: The patient underwent CT abdomen and pelvis in the emergency room which is notable for possible cystitis with a chronic severe right UPJ obstruction. Urology had been consulted overnight, who recommended admission to the hospital with urology consult for possible stenting. The patient was started on ceftriaxone and gentamicin and admitted to the hospitalist service for further management. He defervesced after approximately 1 day on antibiotics with significant resolution in his symptoms except for mild right flank pain only on physical exam. Urology consult stated that if his fevers were persistent, they would consider stenting, but given resolution, they preferred that he followup as an outpatient for a possible urologic stent placement. Of note, during this hospitalization, blood glucose on patient's BMP was in the 200, so an A1c was checked and notable for a significant elevation at 9.3%. The patient had his blood sugar controlled with insulin while admitted to the hospital and was educated on a diabetic diet and need for chronic medications and the risks of not having his diabetes closely monitored. He is also educated on diabetic diet and lifestyle changes. REVIEW OF SYSTEMS: On day of discharge, 10-point review of systems was performed and notable for those mentioned in the hospital course, otherwise 10- point review of systems is negative. PHYSICAL EXAMINATION: Temperature 97.9, heart rate 70s, blood pressure 137/73, respiratory rate 14, oxygen saturation 97% on room air. In general, well- appearing, pleasant man, alert and interactive, appears younger than his stated age. Neck: Supple. Full range of motion. Chest: Clear to auscultation bilaterally. Heart: Regular rate and rhythm. No murmurs, gallops, or rubs. Abdomen: Soft, nontender, nondistended. Back: With right CVA punch tenderness. Lower Extremities: Warm and well perfused without evidence of edema. DIAGNOSTIC STUDIES/LAB DATA: normocytic anemia, Hgb 12.1. A1c 9.3%. Creatinine 1.21. Urine culture with E. coli resistant to ampicillin, gentamicin, tetracycline, and Bactrim, sensitive to ceftriaxone, cefazolin, cefepime. Abdomen/pelvis CT showing findings suggestive of cystitis with chronic severe right UPJ obstruction. Colon containing left inguinal hernia, no obstruction or strangulation, sliding hiatal hernia. DISCHARGE PLAN: The patient is to follow up closely with his primary care physician as well as Dr. Reece of Urology for consideration of stent placement. He was educated extensively on diabetic diet and lifestyle changes and he was given a new prescription for metformin, with side effects discussed, to start at 1 tablet per day and increase until he is at 4 tablets per day for total of 2000 mg daily. He should follow up with his primary care physician for initiation of a statin and other routine diabetic care such as annual eye exams. He was also discharged with a prescription for 7 more days of third generation cephalosporin as noted above. He was educated on return precautions, which include but are not limited to recurrence of fever with right flank pain. DISPOSITION: To home. CONDITION: Good. TIME SPENT: Approximately 60 minutes was spent on discharge of this patient, more than half of which was spent with care coordination at bedside for interview and exam. [id number]/CPS #: [id number] MARTINE
== END 2019-03-28 11:20 | disposition home or self-care (01) | DRG 872 ==
LOC: ED 23:27 → MEDTELE 03-26 04:10 → MED 03-28 01:19
PROVIDERS: ADMIT Internal Medicine; ATTEND Internal Medicine
DX: A41.9 Sepsis, unspecified organism (principal); N11.1 Chronic obstructive pyelonephritis; B96.20 Unspecified Escherichia coli [E. coli] as the cause of diseases classified elsewhere; Z16.24 Resistance to multiple antibiotics; K40.90 Unilateral inguinal hernia, without obstruction or gangrene, not specified as recurrent; K44.9 Diaphragmatic hernia without obstruction or gangrene; E11.65 Type 2 diabetes mellitus with hyperglycemia; F90.9 Attention-deficit hyperactivity disorder, unspecified type; N26.9 Renal sclerosis, unspecified; E78.5 Hyperlipidemia, unspecified; Z87.440 Personal history of urinary (tract) infections; Z79.899 Other long term (current) drug therapy; Z81.1 Family history of alcohol abuse and dependence; Z82.69 Family history of other diseases of the musculoskeletal system and connective tissue; Z82.3 Family history of stroke
CPT/HCPCS: 36415; 71046; 74176; 80048; 80053; 81003; 81015; 83036; 83605; 83690; 83735; 85025; 85027; 85610; 86140; 87040; 87077; 87086; 87186; 93005; 99284; A9270-GY; J0696; J1580; J1644; J1650; J1885; J3475